=== PATIENT | female | born 1940 | race Caucasian/White ===

== ENCOUNTER → 2018-07-01 | Outpatient (CLI) | payer MEDICARE, OTHER | END | disposition home or self-care (01) | LOC: ROC 07:10 | PROVIDERS: ATTEND Radiology Radiation Oncology | DX: C00-D49 Neoplasms (principal); D44.7 Neoplasm of uncertain behavior of aortic body and other paraganglia | CPT/HCPCS: 99214; G0463 ==

== ENCOUNTER 2019-02-06 10:12 | Emergency (ER) | payer MEDICARE ==
[~2019-02-06] VITALS: Ht 160 cm; Wt 67.0 kg
--- NOTE | 2019-02-06 10:31 | NUR ---
Pt to ed for ruq, luq and epigastric abd pain x3 days. Pt also states "something is bulging out and coming through" her vagina, "falls out when I stand up" x3 days. Pt connected to monitors. RA sat 88%. 2L NC placed with recovery to >94%. All other vss. Siderails up x2 for safety. Call light within reach. No needs expressed at this time. Awaiting EDMD assessment and orders.
--- NOTE | 2019-02-06 10:34 | NUR ---
Pt unable to recall home medications at this time. Med rec not completed.
--- NOTE | 2019-02-06 10:37 | NUR ---
Dr. Bailey to bs for assessment. Awaiting orders.
[2019-02-06] MEDS ORDERED: MAALOX/HYOSCYAMINE/LIDOCAINE 45 ML BTL ONE (10:49)
[2019-02-06] MEDS ORDERED: FAMOTIDINE 20 MG TABLET ONE (10:49)
[2019-02-06 11:00] LABS: BASOPHILS # (AUTO) 0.08 x10^3/uL (0-0.1); BASOPHILS % (AUTO) 1 % (0-1); EOSINOPHILS # (AUTO) 0.42 x10^3/uL (0-0.4); EOSINOPHILS % (AUTO) 5 % (1-7); LYMPHOCYTES # (AUTO) 1.55 x10^3/uL (1-3.4); LYMPHOCYTES % (AUTO) 18 % (22-44); MD NO; MEAN CORPUSCULAR HEMOGLOBIN 29.8 pg (27.0-34.8); MEAN CORPUSCULAR HGB CONC 33.1 g/dL (32.4-35.8); MEAN PLATELET VOLUME 8.9 fL (7.4-10.4); MONOCYTES # (AUTO) 0.57 x10^3/uL (0.2-0.8); MONOCYTES % (AUTO) 7 % (2-9); NEUTROPHILS # (AUTO) 6.12 x10^3/uL (1.8-6.8); NEUTROPHILS % (AUTO) 70 % (42-75); PLATELET COUNT 314 x10^3/uL (130-400); RED BLOOD COUNT 4.23 x10^6/uL (3.82-5.3); RED CELL DISTRIBUTION WIDTH 13.7 % (9.6-15.2)
[2019-02-06] MEDS ORDERED: MAALOX/HYOSCYAMINE/LIDOCAINE 45 ML BTL PO ONE (11:00)
[2019-02-06] MEDS ORDERED: FAMOTIDINE 20 MG TABLET PO ONE (11:00)
[2019-02-06 11:11] LABS: ALANINE AMINOTRANSFERASE 16 U/L (12-78); ALBUMIN 3.5 g/dL (3.4-5.0); ANION GAP 9 mmol/L (5-15); CALCIUM 10.9 mg/dL (8.5-10.1); CHLORIDE 104 mmol/L (98-107); CREATININE 1.27 mg/dL (0.55-1.02)
[2019-02-06 11:16] LABS: ALKALINE PHOSPHATASE 39 U/L (45-117); BILIRUBIN,TOTAL 0.3 mg/dL (0.2-1.0); TROPONIN I < 0.015 ng/mL (0.000-0.045)
[2019-02-06 11:26] VITALS: BP 121/40
--- NOTE | 2019-02-06 11:27 | NUR ---
Pt back from imaging at this time. Pt resting in room. VSS on ra. No needs expressed. Call light within reach. Awaiting results.
== END 2019-02-06 12:24 | disposition home or self-care (01) ==
LOC: ED 11:04
DX: K29.00 Acute gastritis without bleeding (principal); K59.00 Constipation, unspecified; N81.4 Uterovaginal prolapse, unspecified; E78.00 Pure hypercholesterolemia, unspecified
CPT/HCPCS: 36415; 74022; 80053; 83690; 84484; 85025; 93005; 99284

== ENCOUNTER 2019-07-15 10:07 | Emergency (ER) | payer MEDICARE ==
[~2019-07-15] VITALS: Ht 160 cm; Wt 69.8 kg
--- NOTE | 2019-07-15 10:30 | NUR ---
Pt resting on gurney c/o cough for two days, dizziness, and nausea starting today. Pt connected to NIBP cuff, continous pulse ox monitor, and monitor and storage bin tender. Bedrails up x 2. Call light within reach. Pt denies cp, sob, diarrhea, or syncope. Pt denies trauma.
[2019-07-15] MEDS ORDERED: LISINOPRIL PO (10:35)
[2019-07-15] MEDS ORDERED: FURO-92 PO (10:35)
[2019-07-15] MEDS ORDERED: FAMO-79 PO (10:35)
[2019-07-15] MEDS ORDERED: LOVA40TA2 PO (10:35)
[2019-07-15] MEDS ORDERED: CALCIUM CARBONATE 500 MG TAB.CHEW ONE (10:54)
[2019-07-15] MEDS ORDERED: SODIUM CHLORIDE FLUSH 10ML SYR IVF ONE (11:00)
[2019-07-15] MEDS ORDERED: CALCIUM CARBONATE 500 MG TAB.CHEW PO ONE (11:00)
[2019-07-15] MEDS ORDERED: ALBUTEROL/IPRATROPIUM 2.5MG/0.5MG, 3 ML ONE ×2 (11:05→11:16)
[2019-07-15] MEDS: ALBUTEROL/IPRATROPIUM 2.5MG/0.5MG, 3 ML NPPB SCH ×2 (11:14→11:15)
[2019-07-15 11:51] LABS: BASOPHILS # (AUTO) 0.03 x10^3/uL (0-0.1); BASOPHILS % (AUTO) 0 % (0-1); EOSINOPHILS # (AUTO) 0.08 x10^3/uL (0-0.4); EOSINOPHILS % (AUTO) 1 % (1-7); LYMPHOCYTES # (AUTO) 1.71 x10^3/uL (1-3.4); LYMPHOCYTES % (AUTO) 21 % (22-44); MD NO; MEAN CORPUSCULAR HEMOGLOBIN 28.8 pg (27.0-34.8); MEAN CORPUSCULAR VOLUME 87.1 fL (80-100); MEAN PLATELET VOLUME 8.9 fL (7.4-10.4); MONOCYTES # (AUTO) 0.52 x10^3/uL (0.2-0.8); MONOCYTES % (AUTO) 6 % (2-9); NEUTROPHILS # (AUTO) 5.75 x10^3/uL (1.8-6.8); NEUTROPHILS % (AUTO) 71 % (42-75); PLATELET COUNT 301 x10^3/uL (130-400); RED CELL DISTRIBUTION WIDTH 13.8 % (9.6-15.2)
[2019-07-15] MEDS ORDERED: POTASSIUM OTC (11:51)
--- NOTE | 2019-07-15 11:53 | NUR ---
Provided report to STERLING Peña. All questions answered. STERLING Peña to assume care of pt at this time.
--- NOTE | 2019-07-15 11:53 | NUR ---
REPORT FROM AYDE, ASSUME CARE OF PT AT THIS TIME.
[2019-07-15 12:04] LABS: ALBUMIN 3.1 g/dL (3.4-5.0); ANION GAP 6 mmol/L (5-15); CALCIUM 8.3 mg/dL (8.5-10.1); CHLORIDE 106 mmol/L (98-107); CREATININE 1.05 mg/dL (0.55-1.02)
[2019-07-15 12:08] LABS: TROPONIN I < 0.015 ng/mL (0.000-0.045)
--- NOTE | 2019-07-15 12:25 | NUR ---
RESULTS BACK, PT FOR RECHECK.
[2019-07-15 14:14] VITALS: BP 122/45
== END 2019-07-15 14:16 | disposition home or self-care (01) ==
LOC: ED 10:47
DX: J06.9 Acute upper respiratory infection, unspecified (principal); J98.01 Acute bronchospasm; R11.2 Nausea with vomiting, unspecified; E78.00 Pure hypercholesterolemia, unspecified; I10 Essential (primary) hypertension; Z79.899 Other long term (current) drug therapy
CPT/HCPCS: 36415; 71045; 80048; 82040; 83605; 83880; 84484; 85025; 87040; 93005; 94640; 99284; J7620

== ENCOUNTER 2021-03-11 09:47 | Outpatient (CLI) | payer MEDICARE ==
[~2021-03-11 09:47] MED LIST: FAMO-79 PO; FURO-92 PO; LISINOPRIL PO; LOVA40TA2 PO; POTASSIUM OTC
== END 2021-03-11 23:59 | disposition home or self-care (01) ==
LOC: CFH 09:47
PROVIDERS: ATTEND Otolaryngology
DX: Z02.9 Encounter for administrative examinations, unspecified (principal)